=== PATIENT | male | born 1960 | race Caucasian/White ===

== ENCOUNTER 2022-04-10 01:51 | Emergency (ER) | payer OTHER ==
[~2022-04-10] VITALS: Ht 182.9 cm; Wt 88.5 kg
[2022-04-10] MEDS ORDERED: TDAP [DIPH/PERTUSSIS/TET] 0.5 ML VIAL IM ONE ×2 (02:00→02:15)
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
--- NOTE | 2022-04-10 02:20 | NUR ---
PT BEING TRANSPORTED TO CT VIA [facility]
--- NOTE | 2022-04-10 05:54 | NUR ---
pt discharged home in stable condition. written and verbal aftercare instructions provided and patient verbalizes understanding of instructions. pt ambulatory with steady gait and picked up by .
[2022-04-10 05:56] VITALS: BP 111/67
== END 2022-04-10 05:56 | disposition home or self-care (01) ==
LOC: ER 02:03
DX: S01.81XA Laceration without foreign body of other part of head, initial encounter (principal); F10.129 Alcohol abuse with intoxication, unspecified; W07.XXXA Fall from chair, initial encounter; Y93.89 Activity, other specified; Y92.89 Other specified places as the place of occurrence of the external cause; Y99.8 Other external cause status; Y90.9 Presence of alcohol in blood, level not specified
CPT/HCPCS: 99284; 70450; 12013; 90471; 90715; A6403